=== PATIENT | male | born 1955 | race African-American/Black ===

== ENCOUNTER → 2023-09-20 06:31 | Day surgery (SDC) | payer OTHER, SELFPAY ==
[2023-09-20 07:24] LABS: Glucose - Point of Care 150 mg/dl (70-99)
== END ==
LOC: GI 06:31
PROVIDERS: ATTENDING PHYSICIAN Surgery; FAMILY PHYSICIAN Family Medicine
DX: Z12.11 Encounter for screening for malignant neoplasm of colon (principal); D12.2 Benign neoplasm of ascending colon; D12.5 Benign neoplasm of sigmoid colon; K63.5 Polyp of colon; K57.30 Diverticulosis of large intestine without perforation or abscess without bleeding; Z86.010 Personal history of colon polyps
CPT/HCPCS: 45385; 45380; 88305; 82962